=== PATIENT | female | born 2000 | race Caucasian/White ===

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

== ENCOUNTER → 2020-12-02 16:38 | Outpatient (CLI) | payer OTHER, SELFPAY ==
[2020-12-02 14:05] VITALS: BMI 19.5
[2020-12-06 03:07] LABS: Chlamydia By Nucleic Acid AMP Negative (Negative)
[2020-12-06 13:02] LABS: Gonococcus By Nucleic Acid AMP Negative (Negative)
== END ==
PROVIDERS: PCP Pediatrics; Referring Provider Nurse Practitioner Women's Health; Visit Provider Nurse Practitioner Women's Health
DX: N76.0 Acute vaginitis (principal); Z11.3 Encounter for screening for infections with a predominantly sexual mode of transmission
CPT/HCPCS: 87070; 87205; 87491; 87591

== ENCOUNTER → 2021-09-22 12:28 | Outpatient (CLI) | payer OTHER, SELFPAY | PROVIDERS: PCP Pediatrics; Referring Provider Obstetrics & Gynecology; Visit Provider Obstetrics & Gynecology | DX: R82.90 Unspecified abnormal findings in urine (principal); N89.8 Other specified noninflammatory disorders of vagina | CPT/HCPCS: 87070; 87086; 87088; 87186; 87205 ==

== ENCOUNTER 2022-04-14 02:05 | Emergency (ER) | payer OTHER, SELFPAY ==
[2022-04-14 02:08] VITALS: BP 112/76; PULSE 103; RESP 16; TEMP 36.3; O2SAT 100; BMI 18.8
--- NOTE | 2022-04-14 02:30 | ED.VIS.GI ---
HPI HPI - GI History of Present Illness Chief Complaint: Abd Pain Narrative Narrative: 21-year-old female presenting with nausea, vomiting, diarrhea. She states that about 10 PM she started having abdominal cramping. She states that earlier today she had a mixture of chicken, rice, black beans. For dinner she ate the same as every body else and nothing else is sick. She states that she started to have some abdominal cramping and did not think anything of it. She went to lay down and fell asleep for a little while then woke up and try to have a bowel movement. She admits to having diarrhea. She has not had a couple episodes of vomiting. No fever, chills, body aches. No known sick contacts. No surgical history in her abdomen. She states she does not have any urinary symptoms and is not concerned for . PFSH PFS Medical History Anemia Depression Encounter for screening for COVID-19 Severe headache Home Medications norethindrone 1 mg-ethinyl estradiol 10 mcg (24)-iron 10 mcg(2) tablet (Lo Loestrin Fe) 1 tab PO DAILY 90 days #90 tabs 11/05/21 [Rx Last Taken Unknown] escitalopram oxalate 20 mg tablet (Lexapro) 20 mg PO DAILY 04/14/22 [History Last Taken Unknown] ondansetron 4 mg disintegrating tablet 4 mg PO Q8H PRN nausea and vomiting #10 tabs 04/14/22 [Rx Last Taken Unknown] Allergy/AdvReac Type Severity Reaction Status Date / Time No Known Allergies Allergy Verified 02/08/22 15:10 Family History Grandfather Heart disease Surgical History S/P ear surgery Social History Smoking Status: Never smoker alcohol intake: never substance use type: does not use caffeine: Yes what type of physical activity do you participate in: walking frequency: 3-4 times per week seatbelt use: always additional social history: [employer] school [employer] ED Constitutional Constitutional ED: Denies chills or fever(s) ENT ENT ED: Denies rhinorrhea or sore throat Cardiovascular Cardiovascular: Denies chest pain or palpitations Respiratory/Chest Respiratory/Chest: Denies cough or dyspnea Gastrointestinal Gastrointestinal: Reports abdominal pain, diarrhea, nausea and vomiting Genitourinary Genitourinary ED: Denies dysuria or hematuria Musculoskeletal Musculoskeletal: Denies arthralgias or back pain Integumentary Denies abscess or Abrasions Neurologic Neurologic: Denies headache(s) or paresthesias Psychiatric Psychiatric: Denies anxiety or depression Endocrine Endocrinology: Denies polydipsia EXAM Physical Exam Const Vital Signs: 04/14/22 02:08 04/14/22 04:06 04/14/22 04:06 Temperature 97.4 F L 97.4 F L Temperature Source Temporal Temporal Pulse Rate 103 H 78 Respiratory Rate 16 17 17 Blood Pressure 112/76 124/74 H Blood Pressure Mean 88 90 Pulse Ox 100 98 Oxygen Delivery Method Room Air Room Air Positive well nourished and well developed General Appearance ED: well developed and NAD; Negative for pallor HEENT Reports TM's clear and moist mucous membranes Tympanic Membrane ED: Yes TM's clear Eyes PERRL and EOMs intact bilaterally General Eye ED: Negative for pale conjunctiva or scleral icterus Neck no lymphadenopathy Resp normal respiratory effort and clear to auscultation bilaterally Auscultation: Negative for rales, rhonchi or wheezes Cardio regular rate and regular rhythm GI Palpation: soft; Negative for guarding, rigid or mass Back/Spine no CVA tenderness Neuro CN's II-XII intact bilaterally and moves all extremities Sensorium / Orientation: alert Psych mental status grossly normal Skin General Skin Exam: Negative for jaundice or pallor MDM MDM MDM Narrative Medical decision making narrative: 21-year-old female presenting with abdominal pain which is low in her abdomen. She has no concern for . No urinary symptoms. She also is having some diarrhea and nausea. This started earlier this evening. She ate nothing atypical. No fever or chills. Initially given Zofran and Bentyl which she states did help some nauseous. She still has having cramping in her lower abdomen. Patient was given Naprosyn. I did obtain a KUB which on my interpretation shows no acute abnormalities. On reevaluation she is feeling improved and ready to go home. I suspect she likely has something viral. I do not believe she needs any further imaging or lab work. Return precautions were discussed. Impression: 1. Nausea/vomiting 2. Abdominal pain 3. Diarrhea Lab Data Attestation: I reviewed the patient's lab results. Radiography Diagnostic Testing: Clinical Impression(s) from Imaging Studies KUB X-Ray 04/14/22 03:01 IMPRESSION: Normal x-ray examination of the abdomen and pelvis. Electronically Signed: Eduardo Grewal at 3:34 EDT , Discharge Plan Triage Chief Complaint: Abd Pain ED Provider: Moncho Jenkins Dx/Rx/DC Orders Instructions: ED Abdominal Pain Unkn Cause Fem Prescriptions: New ondansetron 4 mg tablet,disintegrating 4 mg PO Q8H PRN (Reason: nausea and vomiting) Qty: 10 0RF No Action escitalopram oxalate [Lexapro] 20 mg tablet 20 mg PO DAILY Rx Instructions: take 20 mg day1-14 and 30mg day 15-28 of cycle. Lo Loestrin Fe 1 mg-10 mcg (24)/10 mcg (2) tablet 1 tab PO DAILY 90 Days Qty: 90 4RF Primary Care Provider: Care Physician,No Primary Referrals: My Petit MD [STAFF PHYSICIAN] - Disposition Disposition: Home, Self Care Discharge Date/Time: 04/14/22 04:24
[2022-04-14] MEDS: Ondansetron ODT 4 MG Tablet PO (02:34)
[2022-04-14] MEDS: Dicyclomine 10 MG Capsule 20 MG PO (02:34)
--- NOTE | 2022-04-14 03:01 | RAD_ITS ---
STUDY: X-RAY - ABDOMEN/PELVIS REASON FOR EXAM: Female, 21 years old. diarrhea TECHNIQUE: Single AP view of the abdomen / pelvis. COMPARISON: None. FINDINGS: Normal visualized lung bases. There is an unremarkable bowel gas pattern. There is no demonstrated free abdominal air. The visualized liver, spleen and kidneys are grossly normal in size and morphology. Normal soft tissue structures. Normal visualized osseous structures. RAD/Abdomen Single View (Portable) IMPRESSION: Normal x-ray examination of the abdomen and pelvis. Electronically Signed: Eduardo Grewal DO at 3:34 EDT ,
[2022-04-14] MEDS: Naproxen 500 MG Tablet PO (03:28)
[2022-04-14 04:06] VITALS: BP 124/74; PULSE 78; RESP 17; TEMP 36.3; O2SAT 98
== END 2022-04-14 04:24 | disposition home or self-care (01) ==
LOC: ED 02:35
PROVIDERS: Emergency Provider Student in an Organized Health Care Education/Training Program; Visit Provider Student in an Organized Health Care Education/Training Program
DX: R10.9 Unspecified abdominal pain (principal); R19.7 Diarrhea, unspecified; R11.0 Nausea; F32.A Depression, unspecified; Z79.899 Other long term (current) drug therapy
CPT/HCPCS: 74018; 99283; A4216

== ENCOUNTER → 2024-01-17 | Outpatient (CLI) | payer OTHER, SELFPAY ==
[2024-01-23 16:18] LABS: HPV Reflexed? NOT INDICATED
== END | disposition home or self-care (01) ==
PROVIDERS: Visit Provider Nurse Practitioner Women's Health
DX: Z12.4 Encounter for screening for malignant neoplasm of cervix (principal)
CPT/HCPCS: 88175; G0145